=== PATIENT | male | born 2000 | race Hispanic/Latino ===

== ENCOUNTER 2019-11-12 23:56 | Emergency (ER) | payer MEDICAID ==
[~2019-11-12] VITALS: Ht 188 cm; Wt 89.9 kg
[2019-11-13] MEDS ORDERED: DERMABOND TOPICAL SKIN ADHESIVE TOP ONE (03:30)
[2019-11-13 04:20] VITALS: BP 141/67
== END 2019-11-13 04:21 | disposition home or self-care (01) ==
LOC: M ED 23:56
DX: S01.81XA Laceration without foreign body of other part of head, initial encounter (principal); S01.512A Laceration without foreign body of oral cavity, initial encounter; W50.0XXA Accidental hit or strike by another person, initial encounter; Y92.310 Basketball court as the place of occurrence of the external cause; Y93.67 Activity, basketball